=== PATIENT | female | born 1995 | race Caucasian/White ===

== ENCOUNTER 2018-05-30 08:57 | Inpatient (IN) | payer MEDICAID ==
[2018-05-30] MEDS ORDERED: METHYLERGONOVINE 0.2 MG INJ IM (09:30)
[2018-05-30] MEDS ORDERED: BUTORPHANOL 2 MG INJ IV (09:30)
[2018-05-30] MEDS ORDERED: LIDOCAINE 1% (MPF) 30 ML INJ INJ (09:30)
[2018-05-30] MEDS ORDERED: OXYTOCIN 30 UNITS/LR 500 ML IV ×2 (09:30)
[2018-05-30] MEDS ORDERED: CARBOPROST 250 MCG INJ IM (09:30)
[2018-05-30] MEDS ORDERED: MISOPROSTOL 200 MCG TAB PR (09:30)
[2018-05-30] MEDS: LACTATED RINGER'S 1,000 ML IV ×2 (09:44→18:28)
[2018-05-30] MEDS ORDERED: AMPICILLIN 2 GM/NS (PMX) 100 ML (09:47)
[2018-05-30 09:51] LABS: ADD MAN DIFF? NO
[2018-05-30 09:57] LABS: BASOPHILS % 0.5 % (0.0-2.0); EOSINOPHILS # 0.1 10^3/ul (0.0-0.5); EOSINOPHILS % 1.2 % (0.0-7.0); HEMATOCRIT 32.2 % (37.0-47.0); HEMOGLOBIN 10.9 g/dl (12.0-16.0); LYMPHOCYTES # 1.5 10^3/ul (0.8-2.9); LYMPHOCYTES % 23.5 % (15.0-51.0); MEAN CORPUSCULAR HEMOGLOBIN 31.1 pg (29.0-33.0); MEAN CORPUSCULAR HGB CONC 33.9 g/dl (32.0-37.0); MEAN CORPUSCULAR VOLUME 91.7 fl (82.0-101.0); MEAN PLATELET VOLUME 11.6 fl (7.4-10.4); MONOCYTE # 0.5 10^3/ul (0.3-0.9); MONOCYTES % 7.8 % (0.0-11.0); NEUTROPHIL # 4.3 10^3/ul (1.6-7.5); NEUTROPHILS % 66.1 % (39.0-77.0); PLATELET COUNT 169 10^3/UL (140-415); RED BLOOD COUNT 3.51 10^6/ul (4.20-5.40); RED CELL DISTRIBUTION WIDTH 13.2 % (11.5-14.5)
[2018-05-30 09:57] LABS: WHITE BLOOD COUNT 6.5 10^3/ul (4.8-10.8)
[2018-05-30 10:15] LABS: INR 0.93; PROTIME 12.6 Sec (11.9-14.9)
[2018-05-30 10:16] LABS: PARTIAL THROMBOPLASTIN TIME 28.3 Sec (23.0-35.0)
[2018-05-30] MEDS: AMPICILLIN 2 GM/NS (PMX) 100 ML IVPB (10:25)
[2018-05-30 10:43] LABS: HEPATITIS B SURFACE ANTIGEN NEGATIVE (NEGATIVE)
[2018-05-30] MEDS: MISOPROSTOL 50 MCG CAPSULE PO ×4 (11:19→21:02)
[2018-05-30] MEDS: AMPICILLIN 1 GM/NS (PMX) 50 ML IVPB ×3 (13:52→20:59)
[2018-05-30 22:09] LABS: RAPID PLASMA REAGIN NONREACTIVE (NR)
[2018-05-31] MEDS: AMPICILLIN 1 GM/NS (PMX) 50 ML IVPB ×5 (01:01→17:00)
[2018-05-31] MEDS: MISOPROSTOL 50 MCG CAPSULE PO ×5 (01:03→17:00)
[2018-05-31] MEDS: LACTATED RINGER'S 1,000 ML IV ×3 (04:08→17:21)
[2018-05-31] MEDS: LEVOTHYROXINE 25 MCG TAB PO (06:10)
[2018-05-31] MEDS ORDERED: FENTAnyl 2MCG/ML-ROPIV 0.2% 100 ML (14:37)
[2018-05-31] MEDS ORDERED: FENTAnyl 2MCG/ML-ROPIV 0.2% 100 ML BAG EPI (15:00)
[2018-05-31] MEDS ORDERED: NALOXONE (0.4 MG/ML) INJ IV (15:00)
[2018-05-31] MEDS ORDERED: ROPIVACAINE 0.2% 100ML BAG EPI (15:00)
[2018-05-31] MEDS: OXYTOCIN 30 UNITS/LR 500 ML IV ×2 (16:37→18:49)
[2018-05-31] MEDS: KETOROLAC 30 MG INJ IV (18:50)
[2018-05-31] MEDS: IBUPROFEN 600 MG TAB PO (19:03)
[2018-05-31] MEDS ORDERED: METHYLERGONOVINE 0.2 MG INJ IM (20:30)
[2018-05-31] MEDS ORDERED: MISOPROSTOL 200 MCG TAB PR (20:30)
[2018-05-31] MEDS ORDERED: CARBOPROST 250 MCG INJ IM (20:30)
[2018-05-31] MEDS ORDERED: OXYTOCIN 30 UNITS/LR 500 ML IV (20:30)
[2018-05-31] MEDS ORDERED: HYDROCODONE/APAP (5/325) TAB PO ×2 (20:30)
[2018-05-31] MEDS ORDERED: ZOLPIDEM 5 MG TAB PO (20:30)
[2018-05-31] MEDS: SENNA/DOCUSATE NA (8.6MG/50MG) TAB PO (21:43)
[2018-05-31] MEDS: MAGNESIUM HYDROXIDE 30ML CUP PO (21:43)
[2018-05-31] MEDS: LANOLIN HPA 1 PKT TOP (21:43)
[2018-05-31] MEDS: WITCH HAZEL/GLYCERIN PAD PR (21:46)
[2018-05-31] MEDS: BENZOCAINE 20% 56 ML SPRAY TOP (21:46)
[2018-05-31] MEDS: DIBUCAINE 1% 30 GM OINT TOP (21:47)
[2018-05-31] MEDS: LACTATED RINGER'S 1,000 ML IV* (22:35)
[2018-06-01] MEDS: CEPHALEXIN 500 MG CAP PO ×5 (00:03→23:44)
[2018-06-01] MEDS: IBUPROFEN 600 MG TAB PO ×5 (00:04→23:44)
[2018-06-01] MEDS: LACTATED RINGER'S 1,000 ML IV* ×3 (04:27→20:27)
[2018-06-01] MEDS: LEVOTHYROXINE 25 MCG TAB PO (06:35)
[2018-06-01] MEDS: MAGNESIUM HYDROXIDE 30ML CUP PO ×2 (09:10→20:55)
[2018-06-01] MEDS: SENNA/DOCUSATE NA (8.6MG/50MG) TAB PO ×2 (09:10→20:55)
[2018-06-01 09:26] LABS: ADD MAN DIFF? NO
[2018-06-01 09:33] LABS: BASOPHILS % 0.4 % (0.0-2.0); EOSINOPHILS # 0.1 10^3/ul (0.0-0.5); EOSINOPHILS % 0.8 % (0.0-7.0); HEMOGLOBIN 10.9 g/dl (12.0-16.0); LYMPHOCYTES # 1.5 10^3/ul (0.8-2.9); LYMPHOCYTES % 14.3 % (15.0-51.0); MEAN CORPUSCULAR VOLUME 93.8 fl (82.0-101.0); MEAN PLATELET VOLUME 11.6 fl (7.4-10.4); MONOCYTE # 0.6 10^3/ul (0.3-0.9); NEUTROPHIL # 8.2 10^3/ul (1.6-7.5); PLATELET COUNT 158 10^3/UL (140-415); RED BLOOD COUNT 3.52 10^6/ul (4.20-5.40); RED CELL DISTRIBUTION WIDTH 13.2 % (11.5-14.5)
[2018-06-01 09:33] LABS: WHITE BLOOD COUNT 10.5 10^3/ul (4.8-10.8)
[2018-06-02] MEDS: LACTATED RINGER'S 1,000 ML IV* (04:27)
[2018-06-02] MEDS: CEPHALEXIN 500 MG CAP PO ×2 (05:48→12:41)
[2018-06-02] MEDS: IBUPROFEN 600 MG TAB PO ×2 (05:48→12:41)
[2018-06-02] MEDS: LEVOTHYROXINE 25 MCG TAB PO (06:25)
[2018-06-02] MEDS: VARICELLA VACCINE LIVE/PF 1,350 UNIT/0.5 ML ML SC* (08:43)
[2018-06-02] MEDS: DIPHTH/TET/ACEL PERTUSS (ADULT) 0.5 ML VIAL IM* (08:43)
[2018-06-02] MEDS: MEASLES,MUMPS,RUBELLA VACCINE INJ SC* (08:43)
[2018-06-02] MEDS: MAGNESIUM HYDROXIDE 30ML CUP PO (09:04)
[2018-06-02] MEDS: SENNA/DOCUSATE NA (8.6MG/50MG) TAB PO (09:04)
== END 2018-06-02 17:15 | disposition home or self-care (01) | DRG 807 ==
LOC: PP1 05-31 20:15 → L-D 08:57
PROVIDERS: Obstetrics & Gynecology
PROC: 10E0XZZ Delivery of Products of Conception, External Approach (ICD-10-PCS; principal; 2018-05-31)
PROC: 0KQM0ZZ Repair Perineum Muscle, Open Approach (ICD-10-PCS; 2018-05-31)
DX: O36.5930 Maternal care for other known or suspected poor fetal growth, third trimester, not applicable or unspecified (principal); Z37.0 Single live birth; O99.824 Streptococcus B carrier state complicating childbirth; O70.1 Second degree perineal laceration during delivery; Z3A.38 38 weeks gestation of pregnancy
CPT/HCPCS: 62319; 76815; 76818; 85025; 85610; 85730; 86592; 86850; 86900; 86901; 87340; 90716; 99464